=== PATIENT | female | born 1990 | race Caucasian/White ===

== ENCOUNTER 2016-07-05 10:18 | Day surgery (SDC) | payer OTHER, BC ==
--- NOTE | 2016-07-05 07:55 | HP ---
DATE OF SURGERY: 07/05/2016 HISTORY OF PRESENT ILLNESS: The patient is a 25 year-old with right upper quadrant pain in epigastrium associated with nausea. It takes hours for it to go away. It has been going on since November and worse now. No jaundice. No hepatitis. Ultrasound showed cholelithiasis. I felt she had symptomatic cholelithiasis, chronic cholecystitis. I felt she would benefit from cholecystectomy. PAST MEDICAL HISTORY: She denies any chronic illnesses. PAST SURGICAL HISTORY: None. MEDICATIONS: Include Belviq and generic Phenergan. ALLERGIES: PENICILLIN. FAMILY HISTORY: Negative in regards to this problem. SOCIAL HISTORY: No smoking or alcohol abuse. REVIEW OF SYSTEMS: Twelve systems reviewed. No chest pain or palpitations other systems negative or noncontributory as above and per preadmission questionnaire. PHYSICAL EXAMINATION: GENERAL: No acute distress. HEENT: Sclerae nonicteric. NECK: No JVD. CHEST: Equal excursion, nonlabored breathing. CVS: Regular rate and rhythm. ABDOMEN: Soft, mild tenderness right upper quadrant. No peritoneal signs. EXTREMITIES: No significant edema. NEURO: Alert, moving extremities symmetrically. No gross motor deficits noted. IMPRESSION: Symptomatic cholelithiasis chronic cholecystitis. I feel the patient will benefit from cholecystectomy. Risks and benefits explained in detail but not limited to bleeding or infection, risk of trocar injury or hernia, small risk of bowel, bladder or blood vessel injury, small risk of bile leak, bile duct injury, retained stone or sludge possibly requiring further procedures either open or ERCP, general risk of anesthesia or sedation, postoperative risk of aches, pains, bloating, diarrhea and/or loose stools or constipation possibly even chronic in nature, possibility of converting to open procedure as well as the possibility that this procedure may not improve her symptoms that she may need further work up and/or testing. She understands and agrees to the planned procedure, will proceed with laparoscopic cholecystectomy with possible open as an outpatient.
[~2016-07-05 10:18] MED LIST: BRIDION 200MG/2ML IV ONE; DILAUDID 2 MG INJECTION IV ONE; DIPRIVAN 200 MG/20 ML IV ONE; Decadron 4 MG INJ IV ONE; Lactated Ringers 1,000 ML IV ONE; Quelicin Fliptop 200 MG/10 ML IJ ONE; SUBLIMAZE 100 MCG/2 ML IV ONE; Sensorcaine 0.25% 10 ML ONE; TORAdol 30 mg Injection IJ ONE; Zemuron 100 MG/10 ML IJ ONE; Zofran 4 MG/2 ML VIAL IV ONE
[2016-07-05] MEDS ORDERED: CLINDAMYCIN-D5W 900 MG/50 ML*** 50 ML IV ONE (10:57)
[2016-07-05] MEDS ORDERED: Levofloxacin 500MG/100ML D5W 100 ML IV SCH (11:00)
[2016-07-05] MEDS ORDERED: Lactated Ringers 1,000 ML IV SCH (11:00)
[2016-07-05] MEDS ORDERED: Zofran 4 MG/2 ML VIAL ONE (13:11)
[2016-07-05] MEDS ORDERED: DILAUDID 2 MG INJECTION ONE (13:11)
[2016-07-05 16:54] VITALS: O2SAT 96
[2016-07-05 18:12] VITALS: BP 119/70; PULSE 75
--- NOTE | 2016-07-06 07:38 | OP ---
SURGERY DATE/TIME: 07/05/2016 1203 PREOPERATIVE DIAGNOSIS: Symptomatic cholelithiasis, chronic cholecystitis. POSTOPERATIVE DIAGNOSIS: Symptomatic cholelithiasis, chronic cholecystitis. PROCEDURE: Laparoscopic cholecystectomy. SURGEON: Dr. Lewis Mcgovern. ANESTHESIA: General. ESTIMATED BLOOD LOSS: Minimal. INDICATIONS: As noted above. Risks and benefits explained in detail but not limited to and consent obtained. DESCRIPTION OF PROCEDURE AND FINDINGS: The patient was taken to the OR. General anesthesia was induced. Abdomen was prepped and draped in the usual sterile fashion. After official time out and no disagreement with planned procedure, a transverse incision made at the supraumbilical area. Fascia grasped and pulled upward. Veress needle inserted and tested with saline. Pneumoperitoneum accomplished insufflating opening pressure of 0-15. An 11 mm bladeless port and camera were inserted without difficulty followed by two - 5 mm right upper quadrant ports and a 5 mm epigastric port. The gallbladder grasped and retracted over the edge of the liver. The omental adhesions were carefully taken down posterior lateral to anterior fashion slowly and carefully. The cystic duct, infundibular junction and main cystic artery were carefully isolated directly on the gallbladder wall until a critical view was obtained both anteriorly and posteriorly. Once this was accomplished cystic duct was then clipped x3 and divided. The cystic artery was clipped x3 and divided. The gallbladder was slowly and carefully dissected free from its dense almost concrete attachments to the liver bed staying directly on the gallbladder wall clipping additional oozing side branches off the cystic artery directly on the gallbladder wall as necessary. Just prior to releasing from final attachments to the anterior edge of the liver the liver bed re-inspected. Clips noted to be in place in cystic duct and cystic artery stumps. There were no signs of any active bleeding or bile leakage. It was felt there was no benefit from drain placement. The gallbladder was released from final attachments to the anterior edge of the liver and pulled up into the 10/11 umbilical port, decompressed of bile. Sigel clamp used to retrieve the medium sized stones allowing the gallbladder to be finally pulled free and passed off intact. The port was replaced. Copious amount of irrigation accomplished lateral to the liver and subhepatic space irrigating until clear. The liver bed re-inspected. Clips noted to be in place in cystic duct and cystic artery stumps. There were no signs of any active bleeding or bile leakage. It was felt there was no benefit of any drain placement. At this point the fascial defects at 10/11 site closed with puncture closure device under direct vision with the camera with #1 Vicryl. Pneumoperitoneum decompressed. The wound was irrigated out. Skin incision closed with 4-0 Vicryl. Steri-Strips and sterile dressing applied. 0.25% Marcaine local injected along the skin incision fascial defect. The patient tolerated the procedure well. There were no immediate complications. Findings discussed with the family out in the waiting area.
== END 2016-07-05 15:45 | disposition home or self-care (01) ==
LOC: SDC 10:18
PROVIDERS: ATTEND Surgery
PROC: 0FT44ZZ Resection of Gallbladder, Percutaneous Endoscopic Approach (ICD-10-PCS; principal; 2016-07-05)
DX: K80.10 Calculus of gallbladder with chronic cholecystitis without obstruction (principal)
CPT/HCPCS: 00790; 36415; 84703; 88304; J0330; J1100; J1170; J1885; J1956; J2405; J2704; J3010